=== PATIENT | male | born 1980 | race African-American/Black ===

== ENCOUNTER 2020-03-03 23:43 | Emergency (ER) | payer MEDICAID ==
[~2020-03-03] VITALS: Ht 165.1 cm; Wt 104.3 kg
[2020-03-03 23:55] VITALS: BP 137/92
--- NOTE | 2020-03-03 23:55 | NUR ---
ED Nurse Note: Pt walked into ED for c/o insect bite to upper back s/p a week ago. Pt reports mild pain with movement. Abscess with redness noted to upper back. Pt is aaox4, breathing is normal and unlabored, NAD noted.
--- NOTE | 2020-03-04 00:06 | Emergency Room Report ---
History of Present Illness General Chief Complaint: Skin Rash/Abscess Source: Patient Present Illness HPI Patient is a 39-year-old male presents after increased rash to his mid back. Patient is unclear how this began. Stated been present for 1 week. Noticed some purulent drainage. Next he may have been bitten by a spider. Denies any prior episodes of similar symptoms. Denies any medication allergies. Had not been having any fever. Denies prior history of diabetes or immunocompromise. Denies any prior recent gonorrhea infection. Allergies: Coded Allergies: No Known Allergies (Unverified , 03/04/20) COVID-19 Screening Contact w/high risk pt: No Recent Travel to affected area: No Experienced COVID-19 symptoms?: No COVID-19 Testing performed [employer]TE[employer] OIL FIELD: No Patient History Past Medical History: see triage record Reviewed Nursing Documentation: PMH: Agreed; PSxH: Agreed Nursing Documentation-PMH Past Medical History: No Stated History Review of Systems All Other Systems: negative except mentioned in HPI Physical Exam Vital Signs Date Time Temp Pulse Resp B/P (MAP) Pulse Ox O2 Delivery O2 Flow Rate FiO2 03/03/20 23:47 98.4 93 16 137/92 (107) 97 Room Air General Appearance: well appearing, no apparent distress, alert, GCS 15, non- toxic, obese Head: normocephalic, atraumatic ENT: hearing grossly normal, normal voice Neck: full range of motion, supple Respiratory: lungs clear, normal breath sounds, no respiratory distress, speaking full sentences Gastrointestinal: normal inspection, normal bowel sounds Musculoskeletal: normal inspection Neurologic: alert, motor strength/tone normal, oriented x3, normal gait Psychiatric: mood/affect normal Skin: other - Mild lesion to the mid back less than 1cm with some purulent drainage. Medical Decision Making Diagnostic Impression: Primary Impression: Abscess ER Course Patient presented for skin rash. Differential diagnosis include was not limited to abscess, furuncle, spider bite among others. Patient has a benign exam and does not appear to require any imaging or laboratory testing at this time. Patient appears to have what appears to be a cutaneous abscess. Does not appear to require incision and drainage as it is spontaneously draining already. Blood sugar is 106. Patient was advised dietary modification. He was advised to avoid sugary foods. Patient was advised wound care. He was advised to have the area rechecked in 2 days. He was given oral antibiotics. He was advised to recheck in the next 1 to 2 days. He is to return if worse. Last Vital Signs Date Time Temp Pulse Resp B/P (MAP) Pulse Ox O2 Delivery O2 Flow Rate FiO2 03/03/20 23:55 98.4 93 16 137/92 97 Room Air Status: improved Disposition: HOME, SELF-CARE Condition: Stable Scripts Trimethoprim/Sulfamethoxazole 160/800* (BACTRIM DS TABLET*) 1 Each Tablet 1 TAB ORAL Q12H, #14 TAB 0 Refills Prov: Edgar Brennan MD 03/04/20 Cephalexin* (KEFLEX*) 500 Mg Capsule 500 MG ORAL EVERY 6 HOURS, #28 CAP Prov: Edgar Brennan MD 03/04/20 Edgar Brennan MD Mar 04, 2020 00:06
[2020-03-04] MEDS ORDERED: CEPHALEXIN500 MG ORAL (00:08)
[2020-03-04] MEDS ORDERED: BACTRIM DS TAB1 EAC1 ORAL (00:08)
[2020-03-04 00:15] VITALS: BP 135/74
[2020-03-04] MEDS ORDERED: Tetanus/Diptheria/Pertussis IM ONE (00:15)
[2020-03-04] MEDS ORDERED: Cephalexin 500mg cap ORAL ONE (00:15)
--- NOTE | 2020-03-04 00:15 | NUR ---
ER DISCHARGE NOTE: Patient is cleared to be discharged per ERMD, pt is aox4, on room air, with stable vital signs. pt was given dc and prescription instructions, pt was able to verbalize understanding, pt id band removed. pt is able to ambulate with steady gait. pt took all belongings.
== END 2020-03-04 00:15 | disposition home or self-care (01) ==
LOC: EMR 03-04 00:15
DX: L02.212 Cutaneous abscess of back [any part, except buttock and flank] (principal); Z23 Encounter for immunization
CPT/HCPCS: 82962; 90471; 90715; Z7502; 99283